=== PATIENT | female | born 1970 | race African-American/Black ===

== ENCOUNTER 2017-10-29 12:08 | Emergency (ER) | payer BC ==
[2017-10-29] MEDS ORDERED: Ketorolac Tromethamine 30 MG/ML VIAL ONE (13:18)
== END 2017-10-29 13:37 | disposition home or self-care (01) ==
LOC: ERS 12:08
DX: M54.41 Lumbago with sciatica, right side (principal); F32.9 Major depressive disorder, single episode, unspecified; E78.5 Hyperlipidemia, unspecified; I10 Essential (primary) hypertension; K21.9 Gastro-esophageal reflux disease without esophagitis; Z79.899 Other long term (current) drug therapy
CPT/HCPCS: 96372; J1885

== ENCOUNTER 2017-11-13 14:13 | Emergency (ER) | payer BC | END 2017-11-13 16:13 | disposition home or self-care (01) | LOC: ERS 14:13 | DX: M79.1 Myalgia (principal); K21.9 Gastro-esophageal reflux disease without esophagitis; E78.5 Hyperlipidemia, unspecified; I10 Essential (primary) hypertension; F32.9 Major depressive disorder, single episode, unspecified; Z79.52 Long term (current) use of systemic steroids; Z79.899 Other long term (current) drug therapy; V89.2XXA Person injured in unspecified motor-vehicle accident, traffic, initial encounter | CPT/HCPCS: 99283 ==

== ENCOUNTER 2021-02-11 10:26 | Outpatient (CLI) | payer BC | END 2021-02-11 10:27 | disposition home or self-care (01) | LOC: MRI 10:26 | PROVIDERS: ATTEND Pain Medicine Interventional Pain Medicine | DX: M48.061 Spinal stenosis, lumbar region without neurogenic claudication (principal); M16.11 Unilateral primary osteoarthritis, right hip; M47.816 Spondylosis without myelopathy or radiculopathy, lumbar region; M43.16 Spondylolisthesis, lumbar region | CPT/HCPCS: 72148 ==

== ENCOUNTER 2021-03-11 09:06 | Outpatient (CLI) | payer BC | END 2021-03-11 09:07 | disposition home or self-care (01) | LOC: BICMAMMO 09:06 | PROVIDERS: ATTEND Student in an Organized Health Care Education/Training Program | DX: Z13.820 Encounter for screening for osteoporosis (principal); Z78.0 Asymptomatic menopausal state | CPT/HCPCS: 77080 ==

== ENCOUNTER 2021-11-07 12:15 | Outpatient (CLI) | payer BC ==
[2021-11-07 22:36] LABS: SARS-CoV-2 PCR by NAA DETECTED (NotDetected)
== END 2021-11-07 12:16 | disposition home or self-care (01) ==
LOC: LABBT 12:15
PROVIDERS: ATTEND Student in an Organized Health Care Education/Training Program
DX: U07.1 COVID-19 (principal); Z01.818 Encounter for other preprocedural examination
CPT/HCPCS: 85014; 93005; 93010; U0003; U0005

== ENCOUNTER 2022-05-09 08:46 | Outpatient (CLI) | payer BC | END 2022-05-09 08:47 | disposition home or self-care (01) | LOC: ULT 08:46 | PROVIDERS: ATTEND Internal Medicine Nephrology | DX: N18.9 Chronic kidney disease, unspecified (principal); I15.9 Secondary hypertension, unspecified | CPT/HCPCS: 76770; 93975 ==

== ENCOUNTER 2022-05-30 10:24 | Outpatient (CLI) | payer BC | END 2022-05-30 10:25 | disposition home or self-care (01) | LOC: LABBT 10:24 | PROVIDERS: ATTEND Urology | DX: Z01.818 Encounter for other preprocedural examination (principal); H72.92 Unspecified perforation of tympanic membrane, left ear; H61.20 Impacted cerumen, unspecified ear; H93.8X2 Other specified disorders of left ear; Z20.822 Contact with and (suspected) exposure to COVID-19 | CPT/HCPCS: 85014; 87811; 93005; 93010 ==

== ENCOUNTER 2022-06-03 08:31 | Day surgery (SDC) | payer BC ==
[2022-05-30 12:06] VITALS: BMI 30.9
[2022-06-03] MEDS ORDERED: Lidocaine 1% MPF 2 ML VIAL ONE (09:26)
[2022-06-03] MEDS ORDERED: Midazolam HCl 2 mg/2 ml Vial ONE (09:26)
[2022-06-03] MEDS ORDERED: Ciprofloxacin 0.2% Otic (0.25ML CONTAINER) ONE (09:27)
[2022-06-03] MEDS ORDERED: Lidocaine 1% w/Epinephrine 1:100K 20 ML VIAL ONE (09:27)
[2022-06-03] MEDS ORDERED: EPINEPHrine 1 MG/ML AMP ONE (09:27)
[2022-06-03] MEDS ORDERED: Bacitracin Zinc Ointment 30 gm TUBE ONE ×2 (09:27→12:51)
[2022-06-03] MEDS ORDERED: fentaNYL Citrate/PF 100 MCG/2 ML SYRINGE ONE (09:34)
[2022-06-03] MEDS ORDERED: PROPOFOL 200 MG/20 ML VIAL ONE (10:26)
[2022-06-03] MEDS ORDERED: Dexamethasone 20 MG/5 ML VIAL ONE (10:26)
[2022-06-03] MEDS ORDERED: ePHEDrine 50 MG/ML VIAL ONE (10:26)
[2022-06-03] MEDS ORDERED: Phenylephrine 10 MG/ML VIAL ONE (10:26)
[2022-06-03] MEDS ORDERED: Glycopyrrolate 0.2 MG/ML 5 ML SYRINGE ONE (10:26)
[2022-06-03] MEDS ORDERED: Ondansetron PF 4 MG/2 ML Vial ONE (10:26)
[2022-06-03] MEDS ORDERED: Lidocaine 1% PF 5 ML VIAL ONE (10:26)
[2022-06-03] MEDS ORDERED: Rocuronium Bromide 10 MG/ML (10ML VIAL) ONE (10:26)
[2022-06-03] MEDS ORDERED: HYDROcodone/Acetaminophen 5/325 mg Tablet ONE (14:35)
== END 2022-06-03 15:17 | disposition home or self-care (01) ==
LOC: SDC 08:31
PROVIDERS: ATTEND Student in an Organized Health Care Education/Training Program
PROC: 09U607Z Supplement Left Middle Ear with Autologous Tissue Substitute, Open Approach (ICD-10-PCS; principal; 2022-06-03)
DX: H72.92 Unspecified perforation of tympanic membrane, left ear (principal); H90.12 Conductive hearing loss, unilateral, left ear, with unrestricted hearing on the contralateral side; I10 Essential (primary) hypertension; E78.5 Hyperlipidemia, unspecified; Z79.899 Other long term (current) drug therapy; Z88.1 Allergy status to other antibiotic agents; Z88.2 Allergy status to sulfonamides; Z88.6 Allergy status to analgesic agent
CPT/HCPCS: J0171; J1100; J2250; J2370; J2405; J2704; J2710; J3490; Q4122

== ENCOUNTER 2022-09-28 15:41 | Emergency (ER) | payer BC ==
[2022-09-28 17:17] LABS: #Eosinphils 0.1 thou/uL (0.0-0.7); #Lymphocytes 3.4 thou/uL (1.20-3.40); #Monocytes 0.6 thou/uL (0.11-0.59); #Neutrophils 3.8 thou/uL (1.40-6.50); %Basophils 0.3 % (0.0-1.0); %Eosinophils 1.9 % (0.0-10.0); %Lymphocytes 43.1 % (21.0-51.0); %Monocytes 7.6 % (0.0-10.0); %Neutrophils 47.1 % (42.0-75.0); Hemoglobin 14.3 g/dL (12.0-16.0); Mean Corpuscular HGB CONC 32.2 g/dL (32.0-36.0); Mean Corpuscular Hemoglobin 29.5 pg (27.0-31.0); Mean Corpuscular Volume 91.5 fl (78.0-98.0); Mean Platelet Volume 8.2 fL (7.4-10.4); Platelet Count 252 10x3/uL (130-400); RBC Distribution Width 12.3 % (11.5-14.5); Red Blood Cell (RBC) Count 4.84 mill/uL (4.20-5.40)
[2022-09-28 17:41] LABS: ALT (SGPT) 11 U/L (8-55); AST (SGOT) 15 U/L (5-34); Albumin 4.7 g/dL (3.5-5.0); Alkaline Phosphatase 134 U/L (40-110); Anion Gap 15 mmol/L (10-20); BUN (Urea Nitrogen) 22 mg/dL (9.8-20.1); Bilirubin, Total 0.4 mg/dL (0.2-1.2); Calc. Creatinine Clearance 0 mL/min (70-130); Calcium 9.9 mg/dL (7.8-10.44); Carbon Dioxide 23 mmol/L (22-29); Chloride 108 mmol/L (98-107); Estimated GFR 44; Globulin 4.3 g/dL (2.4-3.5); Glucose 124 mg/dL (70-105); Potassium 3.9 mmol/L (3.5-5.1); Sodium 142 mmol/L (136-145)
[2022-09-28] MEDS ORDERED: Acetaminophen/Codeine 30-300mg Tablet ONE (17:59)
[2022-09-28] MEDS ORDERED: Dexamethasone 10 MG/ML VIAL ONE (17:59)
== END 2022-09-28 18:08 | disposition home or self-care (01) ==
LOC: ERS 15:41
DX: M70.21 Olecranon bursitis, right elbow (principal); K21.9 Gastro-esophageal reflux disease without esophagitis; E78.5 Hyperlipidemia, unspecified; I12.9 Hypertensive chronic kidney disease with stage 1 through stage 4 chronic kidney disease, or unspecified chronic kidney disease; N18.9 Chronic kidney disease, unspecified
CPT/HCPCS: 36415; 80053; 85025; 86140; J1100

== ENCOUNTER 2025-11-01 17:15 | Emergency (ER) | payer BC ==
[~2025-11-01 17:15] MED LIST: Iopamidol-370 76% 500 ML MDV (1 ML CHARGE) ONE
[2025-11-01] MEDS ORDERED: Ondansetron PF 4 MG/2 ML Vial ONE (17:54)
[2025-11-01 18:31] LABS: ALT (SGPT) 17 U/L (Less than 34); AST (SGOT) 30 U/L (11-34); Albumin 4.6 g/dL (3.1-4.5); Alkaline Phosphatase 94 U/L (40-110); Anion Gap 16 mmol/L (10-20); BUN (Urea Nitrogen) 16 mg/dL (9.8-20.1); Bilirubin, Total 0.3 mg/dL (0.3-1.2); Calc. Creatinine Clearance 0 mL/min (70-130); Calcium 9.7 mg/dL (7.8-10.44); Carbon Dioxide 22 mmol/L (22-29); Chloride 108 mmol/L (98-107); Globulin 4.0 g/dL (2.4-3.5); Glucose 102 mg/dL (70-105); Potassium 3.9 mmol/L (3.5-5.1); Sodium 142 mmol/L (136-145)
[2025-11-01 18:44] LABS: #Basophils 0.03 10x3/uL (0.0-0.2); #Eosinophils Less than 0.03 10x3/uL (0.0-0.7); #Monocytes 0.34 10x3/uL (0.11-0.59); #Neutrophils 6.63 10x3/uL (1.40-6.50); %Basophils 0.4 % (0.0-1.0); %Eosinophils 0.1 % (0.0-10.0); %Lymphocytes 12.9 % (21.0-51.0); %Monocytes 4.1 % (0.0-10.0); %Neutrophils 80.7 % (42.0-75.0); Hematocrit 43.4 % (36.0-47.0); Hemoglobin 14.6 g/dL (12.0-16.0); Mean Corpuscular Hemoglobin 28.8 pg (27.0-31.0); Mean Corpuscular Volume 85.6 fL (78.0-98.0); Platelet Count 255 10x3/uL (130-400); Red Blood Cell (RBC) Count 5.07 mill/uL (4.20-5.40); White Blood Cell (WBC) Count 8.22 10x3/uL (4.8-10.8)
[2025-11-01 19:22] LABS: Bacteria/HPF None Seen HPF (None Seen); CAUTI Indications for Culture Alt mental st,lethar; Glucose, Urine (Dipstick) Greater than 1000 mg/dL (Negative); Leukocyte 250 Leu/uL (Negative); Protein, Urine (Dipstick) 10 mg/dL (Neg-Trace); RBC/HPF 0-3 HPF (0-3); Specific Gravity, Urine 1.017 (1.002-1.036)
[2025-11-01 19:24] LABS: Urine Culture Reflex No No
[2025-11-01] MEDS ORDERED: Dexamethasone 10 MG/ML VIAL ONE (22:01)
[2025-11-01] MEDS ORDERED: HYDROcodone/Acetaminophen 7.5/325 mg Tablet ONE (22:01)
== END 2025-11-01 22:12 | disposition home or self-care (01) ==
LOC: ERS 17:15
DX: R10.32 Left lower quadrant pain (principal); I12.9 Hypertensive chronic kidney disease with stage 1 through stage 4 chronic kidney disease, or unspecified chronic kidney disease; N18.9 Chronic kidney disease, unspecified; E87.20 Acidosis, unspecified; M54.32 Sciatica, left side
CPT/HCPCS: 36415; 74177; 80053; 81001; 83605; 85025; 87040; 87077; 87086; 96365; 96366; 96375; 96376; J1100; J2270; J2405; J2543; Q9967

== ENCOUNTER 2025-11-06 09:48 | Outpatient (CLI) | payer BC | END 2025-11-06 09:49 | disposition home or self-care (01) | LOC: BICRAD 09:48 | PROVIDERS: ATTEND Family Medicine | DX: M16.12 Unilateral primary osteoarthritis, left hip (principal) ==